=== PATIENT | male | born 1955 | race American Indian/Alaskan Native ===

== ENCOUNTER 2016-12-02 19:55 | Emergency (ER) | payer OTHER ==
[2016-12-02 21:15] LABS: Basophils % (Auto) 0.6 % (0.0-1.8); Eosinophils % (Auto) 2.2 % (0.0-4.3); Hematocrit 38.2 % (35.5-45.6); Hemoglobin 13.5 gm/dl (11.8-15.2); Mean Corpuscular HGB Conc 35 % (32-34); Mean Corpuscular Hemoglobin 34 pg (28-32); Mean Corpuscular Volume 97 fl (84-94); Platelet Count 206 K/mm3 (140-440); Red Blood Count 3.95 M/mm3 (3.65-5.03); Red Cell Distribution Width 13.2 % (13.2-15.2); White Blood Count 7.3 K/mm3 (4.5-11.0)
[2016-12-02 21:35] LABS: Anion Gap 19 mmol/L; BUN/Creatinine Ratio 10.83; Blood Urea Nitrogen 13 mg/dL (9-20); Calcium 9.8 mg/dL (8.4-10.2); Carbon Dioxide 23 mmol/L (22-30); Chloride 100.9 mmol/L (98-107); Glucose 138 mg/dL (75-100); Potassium 3.8 mmol/L (3.6-5.0); Sodium 139 mmol/L (137-145)
[2016-12-02 21:56] LABS: INR 1.01 (0.87-1.13)
[2016-12-02 21:57] LABS: Partial Thromboplastin Time 32.6 Sec. (24.2-36.6)
[2016-12-02 22:10] LABS: Bacteria,Urine 1+ /HPF (Negative); Bilirubin,Urine NEG (Negative); Blood,Urine SM (Negative); Ketones,Urine NEG (Negative); Leukocyte Esterase,Urine NEG (Negative); Nitrite,Urine NEG (Negative); Protein,Urine <15 mg/dL mg/dL (Negative); Urobilinogen,Urine < 2.0 mg/dL (<2.0); WBC,Urine < 1.0 /HPF (0.0-6.0)
[2016-12-02] MEDS ORDERED: PERCOCET 5/325 PO ONE (23:12)
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
[2016-12-02] MEDS ORDERED: NACL ONE (23:25)
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
[2016-12-03 05:54] VITALS: BP 152/82
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
== END 2016-12-03 06:00 | disposition other institution (70) ==
LOC: ED 19:55
DX: R07.9 Chest pain, unspecified (principal); R10.9 Unspecified abdominal pain; G89.18 Other acute postprocedural pain; I10 Essential (primary) hypertension; E11.9 Type 2 diabetes mellitus without complications; F17.200 Nicotine dependence, unspecified, uncomplicated; F31.9 Bipolar disorder, unspecified; J44.9 Chronic obstructive pulmonary disease, unspecified; Z88.1 Allergy status to other antibiotic agents; Z91.018 Allergy to other foods; V49.49XA Driver injured in collision with other motor vehicles in traffic accident, initial encounter; Y92.488 Other paved roadways as the place of occurrence of the external cause; Y93.89 Activity, other specified; Y99.8 Other external cause status
CPT/HCPCS: 36415; 70450; 71020; 73502; 73560; 74177; 80048; 81001; 85025; 85610; 85730; 99285; Q9967